=== PATIENT | male | born 1990 | race Two or more races ===

== ENCOUNTER 2022-06-07 22:06 | Emergency (ER) | payer OTHER ==
[~2022-06-07] VITALS: Ht 170.2 cm; Wt 99.8 kg
== END 2022-06-08 07:10 | disposition home or self-care (01) ==
LOC: ER 22:06
DX: R53.81 Other malaise (principal)

== ENCOUNTER 2022-06-20 13:44 | Emergency (ER) | payer OTHER ==
[~2022-06-20] VITALS: Ht 170.2 cm; Wt 102.1 kg
[2022-06-20] MEDS ORDERED: GLUMETZA500 MG (14:05)
[2022-06-21] MEDS ORDERED: CEFUROXIME500 MG PO (03:30)
[2022-06-21] MEDS ORDERED: TAMS0.4C PO (03:30)
[2022-06-21] MEDS ORDERED: TRAMADOL HCL50 MG PO (03:30)
== END 2022-06-21 05:07 | disposition home or self-care (01) ==
LOC: ER 13:44
DX: N20.1 Calculus of ureter (principal); Z88.6 Allergy status to analgesic agent; N13.30 Unspecified hydronephrosis; E87.6 Hypokalemia

== ENCOUNTER 2024-01-07 01:00 | Outpatient (CLI) | payer OTHER ==
[~2024-01-07 01:00] MED LIST: CEFUROXIME500 MG PO; GLUMETZA500 MG; TAMS0.4C PO; TRAMADOL HCL50 MG PO
== END 2024-01-07 01:15 | disposition home or self-care (01) ==
LOC: PPH VACUNA 01:00
PROVIDERS: ATTEND Emergency Medicine Pediatric Emergency Medicine
DX: Z23 Encounter for immunization (principal)